=== PATIENT | male | born 1995 | race Hispanic/Latino ===

== ENCOUNTER 2018-06-10 07:50 | Day surgery (SDC) | payer MEDICAID ==
[2018-06-10 08:05] VITALS: BP 143/79
--- NOTE | 2018-06-10 08:10 | NUR ---
ASSESS PT ,LUNGS CLEAR ,RESP NONLABORED,MOVES ALL EXTREMITIES,NO EDEMA,MOM AT BEDSIDE ,STATES BEEN HAVING SORE THROAT ,SNEEZING AND COUGH WITH GREEN PHLEGM,STARTED YESTERDAY ,NO FEVER ,WILL LET EUGENIA RN AWARE IN RADIOLOGY
[2018-06-10] MEDS ORDERED: SODIUM CHLORIDE 0.9% 1000ML 1,000 ML IV ONE (08:12)
--- NOTE | 2018-06-10 08:20 | NUR ---
PATIENT STATES STARTED YESTERDAY WITH SORE THROAT ,COUGH WITH GREEN PHLEGM ,SNEEZING AND RUNNING NOSE,EUGENIA RN CALLED AND MADE AWARE ,WILL LET DR CRAWFORD
[2018-06-10 08:23] LABS: EOSINOPHILS % (AUTO) 2.6 % (0.0-8.0); HEMATOCRIT 41.5 % (42-54); LYMPHOCYTES % (AUTO) 27.5 % (21.0-51.0); MEAN CORPUSCULAR HGB CONC 33.8 g/dL (32.0-36.0); MEAN CORPUSCULAR VOLUME 88.7 fL (80-100); MONOCYTES % (AUTO) 9.3 % (3.0-13.0); NEUTROPHILS % (AUTO) 59.6 % (40.0-77.0); PLATELET COUNT (AUTO) 366 K/uL (130-400); RED BLOOD CELL COUNT(AUTO) 4.67 MIL/uL (4.50-6.20); RED CELL DISTRIBUTION WIDTH 13.3 % (11.0-15.5); WHITE BLOOD COUNT (AUTO) 8.4 K/uL (4.8-10.8)
[2018-06-10 08:26] LABS: CREATININE 0.9 mg/dL (0.5-1.5); POTASSIUM 4.1 mmol/L (3.5-5.1)
[2018-06-10 08:36] LABS: INR 0.95 (0.85-1.15); PARTIAL THROMBOPLASTIN TIME 28.9 SEC (26.3-35.5)
--- NOTE | 2018-06-10 08:40 | NUR ---
EUGENIA RN IN TO TALK WITH PATIENT,,HAD SPOKEN TO DR CRAWFORD ,EXPLAINED RISKS ,PATIENT DECIDES TO WAIT FOR NEXT WEEK ,AND TAKE CARE OF HIS SYMPTOMS,,MOM STATES WILL TAKE HIM TO ,DISCHARGED ,WILL CALL HIM WITH TIME AND DAY FOR NEXT WEEK FOR PROCEDURE
--- NOTE | 2018-06-10 09:30 | NUR ---
MOTHER ,SATURNINO FLORES AWARE OF RECHEDULE PROCEDURE FOR 06/18/2018 AT 1000,TO BE HERE AT 0800,,VERBALIZES UNDERSTANDING
== END 2018-06-10 09:10 | disposition home or self-care (01) ==
LOC: RAH 07:50 → EDSTATUS 08:00 → RAH 09:10
PROVIDERS: ATTEND Internal Medicine Nephrology
DX: R31.9 Hematuria, unspecified (principal); Z53.9 Procedure and treatment not carried out, unspecified reason
CPT/HCPCS: 36415; 80048; 85025; 85610; 85730; J7030

== ENCOUNTER 2019-11-30 22:34 | Emergency (ER) | payer MEDICAID ==
[2019-11-30] MEDS ORDERED: LIDOCAINE HCL 1% 20 ML VIAL ONE (23:01)
== END 2019-11-30 23:20 | disposition left against medical advice (07) ==
LOC: EDH 22:34
DX: S01.81XA Laceration without foreign body of other part of head, initial encounter (principal); I10 Essential (primary) hypertension; Z79.899 Other long term (current) drug therapy; Z72.0 Tobacco use; W51.XXXA Accidental striking against or bumped into by another person, initial encounter; Y93.89 Activity, other specified; Y92.29 Other specified public building as the place of occurrence of the external cause; Y99.8 Other external cause status
CPT/HCPCS: 70450

== ENCOUNTER 2019-12-01 20:55 | Emergency (ER) | payer MEDICAID ==
[2019-12-01] MEDS ORDERED: TETRACAINE HCL 0.5% 4 ML OPHTH SOLN ONE (21:44)
[2019-12-01] MEDS ORDERED: NA BORATE/BORIC AC/H2O/NACL 120 ML OPHTH IRRIG SOLN ONE (21:44)
[2019-12-01] MEDS ORDERED: FLUORESCEIN SODIUM 1 STRIP STRIP ONE (21:45)
[2019-12-01] MEDS ORDERED: TETANUS/DIPHTHERIA TOXOID [ADULT] 0.5 ML VIAL IM ONE (22:29)
[2019-12-01] MEDS ORDERED: OCTYL 2-CYANOACRYLATE 1 EACH TP ONE (22:29)
== END 2019-12-01 22:44 | disposition home or self-care (01) ==
LOC: EDH 20:55
DX: S01.81XA Laceration without foreign body of other part of head, initial encounter (principal); H57.11 Ocular pain, right eye; I10 Essential (primary) hypertension; Y04.0XXA Assault by unarmed brawl or fight, initial encounter; Y93.89 Activity, other specified; Y92.098 Other place in other non-institutional residence as the place of occurrence of the external cause; Y99.8 Other external cause status
CPT/HCPCS: 90471; 90714